=== PATIENT | male | born 1985 | race Caucasian/White ===

== ENCOUNTER 2017-11-02 20:24 | Emergency (ER) | payer MEDICAID ==
[~2017-11-02] VITALS: Ht 172.7 cm; Wt 59.0 kg
[2017-11-02 20:25] VITALS: BP 131/77
[2017-11-02] MEDS ORDERED: BACITRACIN ZINC OINT 500U/GM, 0.9 GM ONE (21:00)
== END 2017-11-02 21:44 | disposition home or self-care (01) ==
LOC: ED 21:30
DX: K02.9 Dental caries, unspecified (principal)
CPT/HCPCS: 99283

== ENCOUNTER 2021-02-18 22:24 | Emergency (ER) | payer MEDICAID ==
[~2021-02-18] VITALS: Ht 172.7 cm; Wt 62.6 kg
[2021-02-18 22:40] VITALS: BP 156/106
[2021-02-18] MEDS ORDERED: DIPH,PERTUSS(ACELL),TET VAC/PF 0.5 ML IM-VACC ONE (23:30)
[2021-02-19] MEDS ORDERED: DIPH,PERTUSS(ACELL),TET VAC/PF 0.5 ML IM-VACC ONE (00:06)
== END 2021-02-19 00:31 | disposition home or self-care (01) ==
LOC: ED 02-19 00:23
DX: S00.81XA Abrasion of other part of head, initial encounter (principal); S00.211A Abrasion of right eyelid and periocular area, initial encounter; S60.511A Abrasion of right hand, initial encounter; Z59.0 Homelessness; Y04.0XXA Assault by unarmed brawl or fight, initial encounter; Y93.89 Activity, other specified; Y92.410 Unspecified street and highway as the place of occurrence of the external cause; Y99.8 Other external cause status
CPT/HCPCS: 90471; 90715; 99283